=== PATIENT | male | born 1990 | race Native Hawaiian/Other Pacific Islander ===

== ENCOUNTER 2020-07-09 15:04 | Emergency (ER) | payer SELFPAY ==
[2020-07-09 16:36] VITALS: BP 142/94
--- NOTE | 2020-07-09 17:48 | Emergency Department Report ---
ED ENT HPI - General Chief complaint: Dental/Oral Stated complaint: TOOTH ISSUES Time Seen by Provider: 07/09/20 17:42 Source: patient Mode of arrival: Ambulatory Limitations: No Limitations - History of Present Illness Initial comments: Patient is a 29-year-old male presents emergency room with complaints of left lower dental pain that began last night. He has associated left-sided facial swelling. He states that he noticed a lump present to the gumline. He states it has been over a year since he has seen a dentist. He denies any fever, vomiting, diarrhea, difficulty swallowing, shortness of breath. No past medical history. No allergies to medications. - Related Data Previous Rx's Medication Instructions Recorded Last Taken Type Chlorhexidine Mouthwash [Peridex] 15 ml MM BID #1 bottle 07/09/20 Unknown Rx Ibuprofen [Motrin 600 MG tab] 600 mg PO Q8H PRN #20 tablet 07/09/20 Unknown Rx Penicillin Vk [Veetids TAB] 500 mg PO QID 7 Days #56 tablet 07/09/20 Unknown Rx Allergies Allergy/AdvReac Type Severity Reaction Status Date / Time No Known Allergies Allergy Unverified 07/09/20 15:26 ED Dental HPI - General Chief complaint: Dental/Oral Stated complaint: TOOTH ISSUES Time Seen by Provider: 07/09/20 17:42 Source: patient Mode of arrival: Ambulatory Limitations: No Limitations - Related Data Previous Rx's Medication Instructions Recorded Last Taken Type Chlorhexidine Mouthwash [Peridex] 15 ml MM BID #1 bottle 07/09/20 Unknown Rx Ibuprofen [Motrin 600 MG tab] 600 mg PO Q8H PRN #20 tablet 07/09/20 Unknown Rx Penicillin Vk [Veetids TAB] 500 mg PO QID 7 Days #56 tablet 07/09/20 Unknown Rx Allergies Allergy/AdvReac Type Severity Reaction Status Date / Time No Known Allergies Allergy Unverified 07/09/20 15:26 ED Review of Systems ROS: Stated complaint: TOOTH ISSUES Other details as noted in HPI Comment: All other systems reviewed and negative ED Past Medical Hx - Past Medical History Previous Medical History?: No - Surgical History Past Surgical History?: No - Medications Home Medications: Home Medications Medication Instructions Recorded Confirmed Last Taken Type Chlorhexidine Mouthwash [Peridex] 15 ml MM BID #1 bottle 07/09/20 Unknown Rx Ibuprofen [Motrin 600 MG tab] 600 mg PO Q8H PRN #20 tablet 07/09/20 Unknown Rx Penicillin Vk [Veetids TAB] 500 mg PO QID 7 Days #56 tablet 07/09/20 Unknown Rx ED Physical Exam - General Limitations: No Limitations General appearance: alert, in no apparent distress - Head Head exam: Present: atraumatic, normocephalic - Eye Eye exam: Present: normal appearance - ENT ENT exam: Present: normal orophraynx, mucous membranes moist, other (two dental caries with cracked teeth present to the left lower back molar, there is a 0.5 cm area of induration and fluctuance present inside of the dental sedrick, there is a small amount of left sided facial edema, uvula is midline, no uvular edema or deviation, no trismus, no tongue elevation) - Respiratory Respiratory exam: Present: normal lung sounds bilaterally. Absent: respiratory distress, wheezes, rales, rhonchi, stridor, chest wall tenderness, accessory muscle use, decreased breath sounds, prolonged expiratory - Cardiovascular Cardiovascular Exam: Present: regular rate, normal rhythm, normal heart sounds. Absent: systolic murmur, diastolic murmur, rubs, gallop - Neurological Exam Neurological exam: Present: alert, oriented X3 - Psychiatric Psychiatric exam: Present: normal affect, normal mood - Skin Skin exam: Present: warm, dry, intact ED Course Vital Signs 07/09/20 15:23 Temperature 98.8 F Pulse Rate 69 Respiratory 16 Rate Blood Pressure 142/94 O2 Sat by Pulse 97 Oximetry ED Medical Decision Making - Medical Decision Making Patient is a 29-year-old male presents emergency room with complaints of left lower dental pain that began last night. He has associated left-sided facial swelling. He states that he noticed a lump present to the gumline. He states it has been over a year since he has seen a dentist. He denies any fever, vomiting, diarrhea, difficulty swallowing, shortness of breath. No past medical history. No allergies to medications. VSS. on exam: two dental caries with cracked teeth present to the left lower back molar, there is a 0.5 cm area of induration and fluctuance present inside of the dental sedrick, there is a small amount of left sided facial edema, uvula is midline, no uvular edema or deviation, no trismus, no tongue elevation. Examination appears consistent with dental caries and dental abscess. No signs of significant facial abscess or Samuel's at this time. Patient given prescription for penicillin VK, chlorhexidine mouthwash, ibuprofen. Advised patient Please use medication as prescribed. Please follow-up with a dentist. it is very important that you follow-up. Return to emergency room for any new or worsening symptoms. Critical care attestation.: If time is entered above; I have spent that time in minutes in the direct care of this critically ill patient, excluding procedure time. ED Disposition Clinical Impression: Infected dental carries, Dental abscess Disposition: TO HOME OR SELFCARE Is pt being admited?: No Does the pt Need Aspirin: No Condition: Stable Instructions: Dental Abscess Additional Instructions: Please use medication as prescribed. Please follow-up with a dentist. it is very important that you follow-up. Return to emergency room for any new or worsening symptoms. Prescriptions: Ibuprofen [Motrin 600 MG tab] 600 mg PO Q8H PRN #20 tablet PRN Reason: Pain Chlorhexidine Mouthwash [Peridex] 15 ml MM BID #1 bottle Penicillin Vk [Veetids TAB] 500 mg PO QID 7 Days #56 tablet Referrals: [facility] [Outside] - 2-3 Days [facility] [Outside] - 2-3 Days Time of Disposition: 17:46 Print Language: LATVIAN
== END 2020-07-09 18:54 | disposition home or self-care (01) ==
LOC: ED 15:04
DX: K04.7 Periapical abscess without sinus (principal); K02.9 Dental caries, unspecified; Z79.899 Other long term (current) drug therapy
CPT/HCPCS: 99282